=== PATIENT | female | born 1980 | race Hispanic/Latino ===

== ENCOUNTER 2018-11-27 07:22 | Outpatient (CLI) | payer OTHER ==
--- NOTE | 2018-11-27 08:07 | ULT ---
ULTRASOUND ABDOMEN LIMITED: (RIGHT UPPER QUADRANT) DATE: 11/27/2018 HISTORY: Elevated LFTs FINDINGS: Gallbladder: Normal wall thickness. No evidence of pericholecystic fluid, gallstones, or sludge. Liver: Diffusely increased echogenicity, consistent with fatty liver. Common duct caliber:3 mm. Right kidney: No hydronephrosis. Pancreas: Nonspecific sonographic appearance. IMPRESSION: 1) Hepatic steatosis. 2) otherwise negative.
== END 2018-11-27 07:23 | disposition home or self-care (01) ==
LOC: BICULT 07:22
PROVIDERS: ATTEND Family Medicine
DX: R74.8 Abnormal levels of other serum enzymes (principal); K76.0 Fatty (change of) liver, not elsewhere classified
CPT/HCPCS: 76705